=== PATIENT | female | born 1950 | race Caucasian/White ===

== ENCOUNTER → 2024-06-16 15:37 | Outpatient (CLI) | payer MEDICARE, OTHER, SELFPAY ==
--- NOTE | 2024-06-16 15:45 | DI.US.S_ITS ---
PROCEDURE: US ABDOMEN COMPLETE INDICATIONS: LUQ PAIN INTERMITTENT WORSE AFTER SITTING A LOT TECHNIQUE: Real-time scanning was performed of the abdominal and retroperitoneal organs, with image documentation. COMPARISON: None. FINDINGS: Liver: Increased hepatic echogenicity. Liver measures 13 cm Gallbladder: Cholecystectomy. Biliary ducts: Intrahepatic bile ducts are non-dilated. Extrahepatic bile duct caliber measures 5 mm. Normal is 6-7 mm or less in diameter, or 10 mm or less post-cholecystectomy. Pancreas: No ductal dilation. Heterogeneity in the pancreas seen on ultrasound, nonspecific and not well assessed Spleen: Spleen is normal in size and homogeneous in echotexture. Kidneys: Kidneys are normal in size and echotexture. Right kidney measures 11 cm long; left kidney measures 11 cm long. No hydronephrosis or nephrolithiasis. No solid masses. Aorta: Visualized aorta is normal in caliber at less than 3 cm. Iliacs: Proximal common iliac arteries are normal in caliber at less than 2.5 cm. IVC: Intrahepatic inferior vena cava is patent. Miscellaneous: No free abdominal fluid. IMPRESSION: No acute sonographic abnormality in the abdomen. Increased hepatic echogenicity, nonspecific, usually due to steatosis. Nonspecific heterogeneous echotexture of the pancreas. Dictated by: Vivek Moralez M.D. on 06/17/2024 at 19:04 Approved by: Vivek Moralez M.D. on 06/17/2024 at 19:05
== END ==
PROVIDERS: Family Provider Nurse Practitioner; PCP Family Medicine; Referring Provider Family Medicine; Visit Provider Family Medicine
DX: R10.12 Left upper quadrant pain (principal); R14.0 Abdominal distension (gaseous); Z90.49 Acquired absence of other specified parts of digestive tract
CPT/HCPCS: 76700